=== PATIENT | female | born 1975 | race Two or more races ===

== ENCOUNTER 2023-07-15 06:00 | Day surgery (SDC) | payer OTHER ==
[~2023-07-15 06:00] MED LIST: CRESTOR10 MG PO
[2023-07-15] MEDS ORDERED: NEURONTIN300 MG PO (12:13)
[2023-07-15] MEDS ORDERED: IBU800 MG PO (12:13)
[2023-07-15] MEDS ORDERED: AMOX1TAB5 PO (12:13)
== END 2023-07-15 17:00 | disposition home or self-care (01) ==
LOC: CIR.AMB 06:00
PROVIDERS: ATTEND Obstetrics & Gynecology Gynecology
DX: N89.8 Other specified noninflammatory disorders of vagina (principal); Z20.822 Contact with and (suspected) exposure to COVID-19; E78.5 Hyperlipidemia, unspecified

== ENCOUNTER 2023-07-15 19:18 | Emergency (ER) | payer OTHER ==
[~2023-07-15] VITALS: Ht 162.6 cm; Wt 74.8 kg
[~2023-07-15 19:18] MED LIST changes: +AMOX1TAB5 PO; +IBU800 MG PO; +NEURONTIN300 MG PO
== END 2023-07-15 21:08 | disposition home or self-care (01) ==
LOC: ER 19:18
DX: R33.8 Other retention of urine (principal)